=== PATIENT | female | born 2000 | race Caucasian/White ===

== ENCOUNTER → 2023-11-08 15:05 | Outpatient (REF) | payer BC, SELFPAY | LOC: RCS 15:05 | PROVIDERS: ATTENDING PHYSICIAN Internal Medicine Cardiovascular Disease; FAMILY PHYSICIAN Internal Medicine | DX: R00.2 Palpitations (principal) | CPT/HCPCS: 93306 ==

== ENCOUNTER → 2023-12-10 14:19 | Outpatient (REF) | payer BC, SELFPAY | LOC: HWRAD 14:19 | PROVIDERS: ATTENDING PHYSICIAN Internal Medicine | DX: E01.0 Iodine-deficiency related diffuse (endemic) goiter (principal) | CPT/HCPCS: 76536 ==